=== PATIENT | male | born 1945 | race African-American/Black ===

== ENCOUNTER 2024-05-02 14:49 | Emergency (ER) | payer OTHER ==
[~2024-05-02] VITALS: Ht 185.4 cm; Wt 122.6 kg
[2024-05-02 16:38] VITALS: PULSE 66; RESP 18; TEMP 98.6; O2SAT 96
[2024-05-02 16:42] VITALS: BP 158/101
[2024-05-02] MEDS ORDERED: CHLO25TA2 PO (17:08)
== END 2024-05-02 17:09 | disposition home or self-care (01) ==
LOC: ER 14:49
DX: I10 Essential (primary) hypertension (principal); Z76.0 Encounter for issue of repeat prescription